=== PATIENT | female | born 1945 | race Caucasian/White ===

== ENCOUNTER 2017-06-14 15:40 | Inpatient (IN) | payer OTHER, MEDICARE ==
[~2017-06-14] VITALS: Ht 154.9 cm; Wt 47.5 kg
[~2017-06-14 15:40] MED LIST: AMLO5TAB22 PO; BYST10TA2 PO; LORA0.5T PO; LOVA40TA PO
[2017-06-14 16:03] VITALS: BP 155/74; PULSE 65; RESP 18; TEMP 98.5; O2SAT 94
--- NOTE | 2017-06-14 16:59 | RADRPT ---
EXAM DATE/TIME: 06/14/2017 16:31 [place] COMPARISON: No previous studies available for comparison. INDICATIONS : Cough. MEDICAL HISTORY : Hypertension. SURGICAL HISTORY : Cholecystectomy. ENCOUNTER: Initial ACUITY: 1 week PAIN SCORE: 0/10 LOCATION: Bilateral chest FINDINGS: PA and lateral views of the chest demonstrate the lungs to be symmetrically aerated without evidence of mass, infiltrate or effusion. The cardiomediastinal contours are unremarkable. Osseous structure s are intact. CONCLUSION: No evidence of acute cardiopulmonary disease. Randy Lloyd MD on June 14, 2017 at 16:56 Board Certified Radiologist. This report was verified electronically.
[2017-06-14 17:33] LABS: AUTOMATED NEUTROPHIL # 2.1 TH/MM3 (1.8-7.7); BASOPHIL % 0.6 % (0.0-2.0); EOSINOPHIL % 0.1 % (0.0-4.0); HEMATOCRIT 43.7 % (35.0-46.0); HEMOGLOBIN 15.1 GM/DL (11.6-15.3); LYMPH % 17.2 % (9.0-44.0); LYMPHOCYTE # 0.5 TH/MM3 (1.0-4.8); MEAN CELL VOLUME 82.7 FL (80.0-100.0); MEAN CORPUSCULAR HEMOGLOBIN 28.5 PG (27.0-34.0); MEAN CORPUSCULAR HGB CONC 34.4 % (32.0-36.0); MEAN PLATELET VOLUME 7.2 FL (7.0-11.0); MONO % 10.6 % (0.0-8.0); MONOCYTE # 0.3 TH/MM3 (0-0.9); NEUT % 71.5 % (16.0-70.0); PLATELET COUNT 253 TH/MM3 (150-450); RED BLOOD COUNT 5.29 MIL/MM3 (4.00-5.30); RED CELL DISTRIBUTION WIDTH 15.2 % (11.6-17.2); WHITE BLOOD COUNT 2.9 TH/MM3 (4.0-11.0)
[2017-06-14 17:36] LABS: BACTERIA, URINE RARE /hpf; BILIRUBIN, URINE NEG (NEG); BLOOD, URINE MOD (NEG); GLUCOSE,URINE NEG (NEG); KETONE, URINE TRACE mg/dL (NEG); NITRITE,URINE NEG (NEG); RENAL EPITHELIAL CELLS 1 /hpf; SQUAMOUS EPITHELIAL CELL URINE 2 /hpf (0-5); URINE COLOR YELLOW (YELLW/STRAW); URINE LEUKOCYTE ESTERASE LARGE (NEG)
--- NOTE | 2017-06-14 17:44 | PD ---
HPI Chief Complaint: GI Complaint Time Seen by Provider: 17:31 Travel History International Travel<30 days: No Contact w/Intl Traveler<30days: No Traveled to known affect area: No History of Present Illness HPI 71-year-old female smoker presents emergency department with one-week history of increasing weakness, dyspnea with exertion, and generalized malaise and decreased appetite. Patient reports diarrhea but no nausea, vomiting, or abdominal pain. She denies urinary symptoms other than decreased output. Patient denies chest pain but has increased wheezing and shortness of breath. Patient has history of COPD, and reports having an inhaler at home which he has not used and does not normally use. She continues to smoke half pack of cigarettes per day. Patient denies specific fever but has had some mild chills. She denies chest pain or lower extremity edema. Patient's complaints are very vague. Her chief complaint is generalized weakness and fatigue. Patient has allergies to amlodipine, codeine, losartan, hydrochlorothiazide, sertraline, and she states prednisone makes her "heart race". Patient reports history of renal insufficiency. PFSH Past Medical History Cancer: No Cardiovascular Problems: No Diabetes: No Endocrine: No Genitourinary: No Hepatitis: No Hiatal Hernia: No Hypertension: Yes Musculoskeletal: No Neurologic: No Psychiatric: No Reproductive: No Respiratory: No Thyroid Disease: No : 2 Para: 2 Past Surgical History Abdominal Surgery: Yes (GALL BLADDER REMOVED ) AICD: No Cardiac Surgery: No Cholecystectomy: Yes Ear Surgery: No Endocrine Surgery: No Eye Surgery: No Genitourinary Surgery: No Gynecologic Surgery: Yes (2X C-SECTIONS) Joint Replacement: No Oral Surgery: No Pacemaker: No Thoracic Surgery: No Social History Alcohol Use: No Tobacco Use: Yes (HALF A PACK DAILY) Substance Use: No Allergies-Medications (Allergen,Severity, Reaction): Coded Allergies: amlodipine (Unverified Adverse Reaction, Severe, 10/26/16) n/v codeine (Unverified Adverse Reaction, Severe, 10/26/16) tachycardia prednisone (Unverified Adverse Reaction, Severe, 10/26/16) tachycardia sertraline (Unverified Adverse Reaction, Severe, 10/26/16) dizzy, n/v Uncoded Allergies: losartan potassium-HCTZ (Adverse Reaction, Severe, 09/04/13) "heart racing" Reported Meds & Prescriptions Reported Meds & Active Scripts Active Reported Lovastatin 40 Mg Tab 50 Mg PO HS Lorazepam 0.5 Mg Tab 0.5 Mg PO DAILY Amlodipine Besylate 5 mg (Amlodipine Besylate) 5 Mg Tab 1 Tab PO DAILY Bystolic 10 Mg Tab (Nebivolol) 10 Mg Tab 10 Mg PO DAILY Review of Systems Except as stated in HPI: all other systems reviewed are Neg General / Constitutional: Positive: Chills, No: Fever Eyes: No: Visual changes HENT: Positive: Lightheadedness, No: Headaches, Vertigo, Sore Throat, Rhinitis , Rhinorrhea, Congestion, Nosebleed, Neck Stiffness, Neck Pain, Dental Difficulties, Earache Cardiovascular: Positive: Dyspnea on exertion, No: Chest Pain or Discomfort, Palpitations, Irregular Rhythm, Tachycardia, Diaphoresis, Syncope, Varicosities , Edema Respiratory: Positive: Cough, Shortness of Breath, Wheezing, No: Sneezing, Orthopnea, Hemoptysis, Night Sweats, Pleuritic Pain Gastrointestinal: Positive: Diarrhea, No: Nausea, Vomiting, Abdominal Pain Genitourinary: Positive: Decreased Urinary Output, No: Urgency, Frequency, Dysuria Musculoskeletal: No: Pain Skin: No Rash Neurologic: No: Weakness Psychiatric: No: Depression Endocrine: No: Polydipsia Hematologic/Lymphatic: No: Easy Bruising Physical Exam Narrative GENERAL: Patient appears weak, but able to answer questions. Has audible wheezing. SKIN: Warm and dry. Normal pallor. Decreased turgor with mild tenting. HEAD: Atraumatic. Normocephalic. EYES: Pupils equal and round. No scleral icterus. No injection or drainage. ENT: No nasal bleeding or discharge. Mucous membranes pink and moist. Pharynx is clear. Airways patent. TMs are clear. No sinus tenderness. NECK: Trachea midline. Supple and nontender. CARDIOVASCULAR: Regular rate and rhythm. No murmurs gallops or rubs RESPIRATORY: No accessory muscle use. Course with mild to moderate wheezing to auscultation. No rales or rhonchi. Breath sounds diminished bilaterally. GASTROINTESTINAL: Abdomen soft, non-tender, nondistended. Hepatic and splenic margins not palpable. No CVA tenderness. MUSCULOSKELETAL: Extremities without clubbing, cyanosis, or edema. No obvious deformities. Moving all extremities normally. NEUROLOGICAL: Awake and alert. No obvious cranial nerve deficits. Motor grossly within normal limits. Five out of 5 muscle strength in the arms and legs. Normal speech. PSYCHIATRIC: Appropriate mood and affect; insight and judgment normal. Data Data Last Documented VS Vital Signs Date Time Temp Pulse Resp B/P (MAP) Pulse Ox O2 Delivery O2 Flow Rate FiO2 06/14/17 18:26 99 Aerosol Mask 06/14/17 16:03 98.5 65 18 155/74 (101) Orders Orders Complete Blood Count With Diff (06/14/17 16:05) Comprehensive Metabolic Panel (06/14/17 16:05) Lipase (06/14/17 16:05) Urinalysis - C+S If Indicated (06/14/17 16:05) Chest, Pa & Lat (06/14/17 ) B-Type Natriuretic Peptide (06/14/17 17:42) Act Partial Throm Time (Ptt) (06/14/17 17:42) Prothrombin Time / Inr (Pt) (06/14/17 17:42) Magnesium (Mg) (06/14/17 17:42) Ckmb (Isoenzyme) Profile (06/14/17 17:42) Troponin I (06/14/17 17:42) Iv Access Insert/Monitor (06/14/17 17:42) Electrocardiogram (06/14/17 17:42) Ecg Monitoring (06/14/17 17:42) Oximetry (06/14/17 17:42) Oxygen Administration (06/14/17 17:42) Sodium Chloride 0.9% Flush (Ns Flush) (06/14/17 17:45) Albuterol-Ipratropium Neb (Duoneb Neb) (06/14/17 17:45) Dexamethasone Inj (Decadron Inj) (06/14/17 17:45) Sodium Chlorid 0.9% 500 Ml Inj (Ns 500 M (06/14/17 18:00) Labs Laboratory Tests Test 06/14/17 16:50 06/14/17 18:20 White Blood Count 2.9 TH/MM3 Red Blood Count 5.29 MIL/MM3 Hemoglobin 15.1 GM/DL Hematocrit 43.7 % Mean Corpuscular Volume 82.7 FL Mean Corpuscular Hemoglobin 28.5 PG Mean Corpuscular Hemoglobin Concent 34.4 % Red Cell Distribution Width 15.2 % Platelet Count 253 TH/MM3 Mean Platelet Volume 7.2 FL Neutrophils (%) (Auto) 71.5 % Lymphocytes (%) (Auto) 17.2 % Monocytes (%) (Auto) 10.6 % Eosinophils (%) (Auto) 0.1 % Basophils (%) (Auto) 0.6 % Neutrophils # (Auto) 2.1 TH/MM3 Lymphocytes # (Auto) 0.5 TH/MM3 Monocytes # (Auto) 0.3 TH/MM3 Eosinophils # (Auto) 0.0 TH/MM3 Basophils # (Auto) 0.0 TH/MM3 CBC Comment DIFF FINAL Differential Comment Urine Color YELLOW Urine Turbidity CLEAR Urine pH 6.0 Urine Specific [place] 1.016 Urine Protein 300 mg/dL Urine Glucose (UA) NEG mg/dL Urine Ketones TRACE mg/dL Urine Occult Blood MOD Urine Nitrite NEG Urine Bilirubin NEG Urine Urobilinogen LESS THAN 2.0 MG/DL Urine Leukocyte Esterase LARGE Urine RBC 1 /hpf Urine WBC 27 /hpf Urine Squamous Epithelial Cells 2 /hpf Urine Renal Epithelial Cells 1 /hpf Urine Bacteria RARE /hpf Microscopic Urinalysis Comment CULT NOT INDICATED Blood Urea Nitrogen 13 MG/DL Creatinine 1.10 MG/DL Random Glucose 89 MG/DL Total Protein 7.5 GM/DL Albumin 2.9 GM/DL Calcium Level 8.1 MG/DL Alkaline Phosphatase 107 U/L Aspartate Amino Transf (AST/SGOT) 53 U/L Alanine Aminotransferase (ALT/SGPT) 28 U/L Total Bilirubin 0.2 MG/DL Sodium Level 126 MEQ/L Potassium Level 4.0 MEQ/L Chloride Level 92 MEQ/L Carbon Dioxide Level 26.2 MEQ/L Anion Gap 8 MEQ/L Estimat Glomerular Filtration Rate 49 ML/MIN Lipase 252 U/L [facility] Medical Decision Making Medical Screen Exam Complete: Yes Emergency Medical Condition: Yes Medical Record Reviewed: Yes Differential Diagnosis Generalized weakness. Electrolyte imbalance. Dehydration. CHF. COPD with acute exacerbation. Diarrhea. Renal failure. Narrative Course Patient is medically stable at time of exam. Vital signs stable with O2 sat of 94% on room air. Labs ordered in triage include CBC, CMP, and urinalysis. Chest x-ray was ordered showing no acute process per radiologist. EKG is ordered after my exam. Additional labs ordered including cardiac panel, coagulation studies, proBNP, and magnesium. Patient is given DuoNeb 3 as well as 8 mg Decadron IV. Patient is given 500 mL of normal saline bolus. 1900 hrs., labs are pending. Care of the patient is turned over to Yanni Cunningham nurse practitioner for final disposition Condition: Stable Anand Ames Jun 14, 2017 17:44
[2017-06-14] MEDS ORDERED: SODIUM CHLORIDE 0.9% FLUSH 10 ML FLUSH IVF PRN (17:45)
[2017-06-14] MEDS ORDERED: DEXAMETHASONE SOD PHOS 4 MG/ML VIAL IV PUSH ONE (17:45)
[2017-06-14] MEDS: RESP: ALBUTEROL 2.5 MG/IPRATROPIUM 0.5 MG NEB (SCH) INH (17:51)
[2017-06-14 17:56] LABS: ALT (GPT) 28 U/L (10-53)
[2017-06-14 17:57] LABS: ALBUMIN 2.9 GM/DL (3.4-5.0); AST (GOT) 53 U/L (15-37); BICARBONATE 26.2 MEQ/L (21.0-32.0); BLOOD UREA NITROGEN 13 MG/DL (7-18); CALCIUM 8.1 MG/DL (8.5-10.1); CHLORIDE 92 MEQ/L (98-107); GLOMERULAR FILTRATION RATE 49 ML/MIN (>89); GLUCOSE,RANDOM 89 MG/DL (74-106); SODIUM (NA) 126 MEQ/L (136-145)
[2017-06-14 17:58] LABS: ALKALINE PHOSPHATASE 107 U/L (45-117); TOTAL BILIRUBIN ADULT 0.2 MG/DL (0.2-1.0); TOTAL PROTEIN 7.5 GM/DL (6.4-8.2)
[2017-06-14] MEDS ORDERED: SODIUM CHLORID 0.9% 500 ML INJ 500 ML IV ONE (18:00)
[2017-06-14 19:04] VITALS: BP 140/78; PULSE 114; RESP 20; TEMP 98.6; O2SAT 92
[2017-06-14 19:14] LABS: PROTHROMBIN TIME - PATIENT 9.9 SEC (9.8-11.6)
[2017-06-14 19:21] LABS: MAGNESIUM 1.7 MG/DL (1.5-2.5)
[2017-06-14 19:22] LABS: TROPONIN I LESS THAN 0.02 NG/ML (0.02-0.05)
[2017-06-14] MEDS ORDERED: SODIUM CHLOR 0.9% 1000 ML INJ 1,000 ML IV ONE (20:15)
[2017-06-14] MEDS ORDERED: cefTRIAXone INJ 1,000 MG in SODIUM CHLORIDE 0.9% INJ 100 ML IV ONE (20:15)
--- NOTE | 2017-06-14 20:24 | PD ---
Physical Exam Date Seen by Provider: Jun 14, 2017 Time Seen by Provider: 20:21 Narrative For full history and physical examination please see previous providers note. I assumed care of this patient change of shift. Data Data Last Documented VS Vital Signs Date Time Temp Pulse Resp B/P (MAP) Pulse Ox O2 Delivery O2 Flow Rate FiO2 06/14/17 19:04 98.6 114 20 140/78 (98) 92 Room Air Orders Orders Complete Blood Count With Diff (06/14/17 16:05) Comprehensive Metabolic Panel (06/14/17 16:05) Lipase (06/14/17 16:05) Urinalysis - C+S If Indicated (06/14/17 16:05) Chest, Pa & Lat (06/14/17 ) B-Type Natriuretic Peptide (06/14/17 17:42) Act Partial Throm Time (Ptt) (06/14/17 17:42) Prothrombin Time / Inr (Pt) (06/14/17 17:42) Magnesium (Mg) (06/14/17 17:42) Ckmb (Isoenzyme) Profile (06/14/17 17:42) Troponin I (06/14/17 17:42) Iv Access Insert/Monitor (06/14/17 17:42) Electrocardiogram (06/14/17 17:42) Ecg Monitoring (06/14/17 17:42) Oximetry (06/14/17 17:42) Oxygen Administration (06/14/17 17:42) Sodium Chloride 0.9% Flush (Ns Flush) (06/14/17 17:45) Albuterol-Ipratropium Neb (Duoneb Neb) (06/14/17 17:45) Dexamethasone Inj (Decadron Inj) (06/14/17 17:45) Sodium Chlorid 0.9% 500 Ml Inj (Ns 500 M (06/14/17 18:00) CKMB (06/14/17 18:20) CKMB% (06/14/17 18:20) Ceftriaxone Inj (Rocephin Inj) (06/14/17 20:15) Sodium Chlor 0.9% 1000 Ml Inj (Ns 1000 M (06/14/17 20:15) Admit Order (Ed Use Only) (06/14/17 20:19) Labs Laboratory Tests Test 06/14/17 16:50 06/14/17 18:20 White Blood Count 2.9 TH/MM3 Red Blood Count 5.29 MIL/MM3 Hemoglobin 15.1 GM/DL Hematocrit 43.7 % Mean Corpuscular Volume 82.7 FL Mean Corpuscular Hemoglobin 28.5 PG Mean Corpuscular Hemoglobin Concent 34.4 % Red Cell Distribution Width 15.2 % Platelet Count 253 TH/MM3 Mean Platelet Volume 7.2 FL Neutrophils (%) (Auto) 71.5 % Lymphocytes (%) (Auto) 17.2 % Monocytes (%) (Auto) 10.6 % Eosinophils (%) (Auto) 0.1 % Basophils (%) (Auto) 0.6 % Neutrophils # (Auto) 2.1 TH/MM3 Lymphocytes # (Auto) 0.5 TH/MM3 Monocytes # (Auto) 0.3 TH/MM3 Eosinophils # (Auto) 0.0 TH/MM3 Basophils # (Auto) 0.0 TH/MM3 CBC Comment DIFF FINAL Differential Comment Urine Color YELLOW Urine Turbidity CLEAR Urine pH 6.0 Urine Specific [place] 1.016 Urine Protein 300 mg/dL Urine Glucose (UA) NEG mg/dL Urine Ketones TRACE mg/dL Urine Occult Blood MOD Urine Nitrite NEG Urine Bilirubin NEG Urine Urobilinogen LESS THAN 2.0 MG/DL Urine Leukocyte Esterase LARGE Urine RBC 1 /hpf Urine WBC 27 /hpf Urine Squamous Epithelial Cells 2 /hpf Urine Renal Epithelial Cells 1 /hpf Urine Bacteria RARE /hpf Microscopic Urinalysis Comment CULT NOT INDICATED Blood Urea Nitrogen 13 MG/DL Creatinine 1.10 MG/DL Random Glucose 89 MG/DL Total Protein 7.5 GM/DL Albumin 2.9 GM/DL Calcium Level 8.1 MG/DL Alkaline Phosphatase 107 U/L Aspartate Amino Transf (AST/SGOT) 53 U/L Alanine Aminotransferase (ALT/SGPT) 28 U/L Total Bilirubin 0.2 MG/DL Sodium Level 126 MEQ/L Potassium Level 4.0 MEQ/L Chloride Level 92 MEQ/L Carbon Dioxide Level 26.2 MEQ/L Anion Gap 8 MEQ/L Estimat Glomerular Filtration Rate 49 ML/MIN Lipase 252 U/L Prothrombin Time 9.9 SEC Prothromb Time International Ratio 1.0 RATIO Activated Partial Thromboplast Time 34.3 SEC Magnesium Level 1.7 MG/DL Total Creatine Kinase 267 U/L Creatine Kinase MB 4.8 NG/ML Creatine Kinase MB % 1.8 % Troponin I LESS THAN 0.02 NG/ML [facility] Medical Record Reviewed: Yes Supervised Visit with BRIAN: No Narrative Course Per 's report patient has been weak and laying in bed for several days. For full H&P please see previous providers report. CBC with a white count of 2.9 with left shift, chemistry sodium of 126, creatinine 1.10 CK 267 CK-MB 4.8 lipase is normal, troponin is less than 0.02. Urinalysis with moderate occult blood, large leukocyte esterase, 27 white blood cells. This did not prompt reflux culture however patient will be treated with Rocephin IV now for urinary tract infection. Patient was given an additional liter of IV fluids. She was also placed on 2 L of oxygen via nasal cannula because her oxygen saturation was 91% on room air. Chest x-ray shows no acute disease. Discussed findings with Dr. Garcia who accepted admission. Patient has been advised on findings and plan of care and are agreeable. Diagnosis Primary Impression: Hyponatremia Additional Impressions: Urinary tract infection Qualified Codes: N39.0 - Urinary tract infection, site not specified; R31.9 - Hematuria, unspecified Generalized weakness COPD exacerbation Admitting Information Admitting Physician Requests: Admit Condition: Stable Yanni Berger [employer] Jun 14, 2017 20:24
[2017-06-14 21:13] VITALS: BP 147/69; PULSE 87; RESP 19; O2SAT 100
[2017-06-14] MEDS ORDERED: ACETAMINOPHEN 325 MG TAB PO PRN (23:15)
[2017-06-14] MEDS ORDERED: SODIUM CHLORIDE 0.9% FLUSH 10 ML FLUSH IV FLUSH PRN (23:15)
[2017-06-14] MEDS ORDERED: ONDANSETRON HCL 4 MG/2 ML VIAL IVP PRN (23:15)
[2017-06-14] MEDS ORDERED: NALOXONE HCL 0.4 MG/ML AMP IV PUSH PRN (23:15)
[2017-06-14 23:50] VITALS: BP 147/70; PULSE 89; RESP 16; TEMP 98.5; O2SAT 94
[2017-06-15] VITALS (13 sets, daily range): BP systolic 138–156; BP diastolic 67–76; PULSE 60–81; RESP 16–18; TEMP 98–98.7; O2SAT 93–98
[2017-06-15] MEDS: SODIUM CHLOR 0.9% 1000 ML INJ 1,000 ML IV SCH ×2 (00:50→20:49)
[2017-06-15] MEDS: HEPARIN SODIUM - SQ 10,000 UNITS/ML VIAL SQ SCH ×4 (00:51→23:58)
--- NOTE | 2017-06-15 04:31 | HHI.HP ---
[facility] Service [place] Hospitalists Primary Care Physician Alistair Yeung MD Admission Diagnosis UTI, GENERALIZED WEAKNESS, COPD EXACERBATION Diagnoses: Travel History International Travel<30 Days: No Contact w/Intl Traveler <30 Da: No Traveled to Known Affected Are: No History of Present Illness 71-year-old female with a past medical history significant for hypertension presents to the emergency department for evaluation of anorexia and weakness. The patient reports that she has been feeling sick for approximately one week. She endorses accompanying fever/chills. Positive diarrhea. Positive nonproductive cough. Patient denies any dysuria or frequency. No nausea/ vomiting/diarrhea. No chest pain or shortness of breath. No lateralizing signs /symptoms. Review of Systems Except as stated in HPI: all other systems reviewed are Neg Past Family Social History Past Medical History Hypertension Past Surgical History 2 Cholecystectomy Reported Medications Reported Meds & Active Scripts Active Reported Lovastatin 40 Mg Tab 50 Mg PO HS Lorazepam 0.5 Mg Tab 0.5 Mg PO DAILY Amlodipine Besylate 5 mg (Amlodipine Besylate) 5 Mg Tab 1 Tab PO DAILY Bystolic 10 Mg Tab (Nebivolol) 10 Mg Tab 10 Mg PO DAILY Allergies: Coded Allergies: amlodipine (Unverified Adverse Reaction, Severe, 10/26/16) n/v codeine (Unverified Adverse Reaction, Severe, 10/26/16) tachycardia prednisone (Unverified Adverse Reaction, Severe, 10/26/16) tachycardia sertraline (Unverified Adverse Reaction, Severe, 10/26/16) dizzy, n/v Uncoded Allergies: losartan potassium-HCTZ (Adverse Reaction, Severe, 09/04/13) "heart racing" Family History Mother with CAD Social History Smokes approximately half a pack per day. Denies alcohol or illicit drugs. Physical Exam Vital Signs Vital Signs Date Time Temp Pulse Resp B/P (MAP) Pulse Ox O2 Delivery O2 Flow Rate FiO2 06/14/17 23:50 98.5 89 16 147/70 (95) 94 06/14/17 21:13 87 19 147/69 (95) 100 Nasal Cannula 2.00 06/14/17 19:04 98.6 114 20 140/78 (98) 92 Room Air 06/14/17 18:26 99 Aerosol Mask 06/14/17 16:03 98.5 65 18 155/74 (101) 94 Physical Exam GENERAL: female lying in bed SKIN: No rashes, ecchymoses or lesions. Cool and dry. HEAD: Atraumatic. Normocephalic. No temporal or scalp tenderness. EYES: Pupils equal round and reactive. Extraocular motions intact. No scleral icterus. No injection or drainage. ENT: Nose without bleeding, purulent drainage or septal hematoma. Throat without erythema, tonsillar hypertrophy or exudate. Uvula midline. Airway patent. NECK: Trachea midline. No JVD or lymphadenopathy. Supple, nontender, no meningeal signs. CARDIOVASCULAR: Regular rate and rhythm without murmurs, gallops, or rubs. RESPIRATORY: Clear to auscultation. Breath sounds equal bilaterally. No wheezes , rales, or rhonchi. GASTROINTESTINAL: Abdomen soft, non-tender, nondistended. No hepato-splenomegaly , or palpable masses. No guarding. MUSCULOSKELETAL: Extremities without clubbing, cyanosis, or edema. No joint tenderness, effusion, or edema noted. No calf tenderness. NEUROLOGICAL: Awake and alert. Cranial nerves II through XII intact. Motor and sensory grossly within normal limits. Normal speech. Laboratory Laboratory Tests Test 06/14/17 16:50 06/14/17 18:20 White Blood Count 2.9 Red Blood Count 5.29 Hemoglobin 15.1 Hematocrit 43.7 Mean Corpuscular Volume 82.7 Mean Corpuscular Hemoglobin 28.5 Mean Corpuscular Hemoglobin Concent 34.4 Red Cell Distribution Width 15.2 Platelet Count 253 Mean Platelet Volume 7.2 Neutrophils (%) (Auto) 71.5 Lymphocytes (%) (Auto) 17.2 Monocytes (%) (Auto) 10.6 Eosinophils (%) (Auto) 0.1 Basophils (%) (Auto) 0.6 Neutrophils # (Auto) 2.1 Lymphocytes # (Auto) 0.5 Monocytes # (Auto) 0.3 Eosinophils # (Auto) 0.0 Basophils # (Auto) 0.0 CBC Comment DIFF FINAL Differential Comment Urine Color YELLOW Urine Turbidity CLEAR Urine pH 6.0 Urine Specific [place] 1.016 Urine Protein 300 Urine Glucose (UA) NEG Urine Ketones TRACE Urine Occult Blood MOD Urine Nitrite NEG Urine Bilirubin NEG Urine Urobilinogen LESS THAN 2.0 Urine Leukocyte Esterase LARGE Urine RBC 1 Urine WBC 27 Urine Squamous Epithelial Cells 2 Urine Renal Epithelial Cells 1 Urine Bacteria RARE Microscopic Urinalysis Comment CULT NOT INDICATED Blood Urea Nitrogen 13 Creatinine 1.10 Random Glucose 89 Total Protein 7.5 Albumin 2.9 Calcium Level 8.1 Alkaline Phosphatase 107 Aspartate Amino Transf (AST/SGOT) 53 Alanine Aminotransferase (ALT/SGPT) 28 Total Bilirubin 0.2 Sodium Level 126 Potassium Level 4.0 Chloride Level 92 Carbon Dioxide Level 26.2 Anion Gap 8 Estimat Glomerular Filtration Rate 49 Lipase 252 Prothrombin Time 9.9 Prothromb Time International Ratio 1.0 Activated Partial Thromboplast Time 34.3 Magnesium Level 1.7 Total Creatine Kinase 267 Creatine Kinase MB 4.8 Creatine Kinase MB % 1.8 Troponin I LESS THAN 0.02 B-Type Natriuretic Peptide 79 Date/Time Source Procedure Growth Status 06/14/17 16:05 Urine Clean Catch Urine Culture Pending Received Result Diagram: 06/14/17 1650 06/14/17 1650 Caprini VTE Risk Assessment Caprini VTE Risk Assessment: Mod/High Risk (score >= 2) Caprini Risk Assessment Model Point Value = 1 Point Value = 2 Point Value = 3 Point Value = 5 Age 41-60 Minor surgery BMI > 25 kg/m2 Swollen legs Varicose veins or History of unexplained or recurrent spontaneous Oral contraceptives or hormone replacement Sepsis (< 1 month) Serious lung disease, including pneumonia (< 1 month) Abnormal pulmonary function Acute myocardial infarction Congestive heart failure (< 1 month) History of inflammatory bowel disease Medical patient at bed rest Age 61-74 Arthroscopic surgery Major open surgery (> 45 min) Laparoscopic surgery (> 45 min) Malignancy Confined to bed (> 72 hours) Immobilizing plaster cast Central venous access Age >= 75 History of VTE Family history of VTE Factor V Leiden Prothrombin [id number] Lupus anticoagulant Anticardiolipin antibodies Elevated serum homocysteine Heparin-induced thrombocytopenia Other congenital or acquired thrombophilia Stroke (< 1 month) Elective arthroplasty Hip, pelvis, or leg fracture Acute spinal cord injury (< 1 month) Prophylaxis Regimen Total Risk Factor Score Risk Level Prophylaxis Regimen 0-1 Low Early ambulation 2 Moderate Order ONE of the following: *Sequential Compression Device (SCD) *Heparin 5000 units SQ BID 3-4 Higher Order ONE of the following medications: *Heparin 5000 units SQ TID *Enoxaparin/Lovenox 40 mg SQ daily (WT < 150 kg, CrCl > 30 mL/min) *Enoxaparin/Lovenox 30 mg SQ daily (WT < 150 kg, CrCl > 10-29 mL/min) *Enoxaparin/Lovenox 30 mg SQ BID (WT < 150 kg, CrCl > 30 mL/min) AND/OR *Sequential Compression Device (SCD) 5 or more Highest Order ONE of the following medications: *Heparin 5000 units SQ TID (Preferred with Epidurals) *Enoxaparin/Lovenox 40 mg SQ daily (WT < 150 kg, CrCl > 30 mL/min) *Enoxaparin/Lovenox 30 mg SQ daily (WT < 150 kg, CrCl > 10-29 mL/min) *Enoxaparin/Lovenox 30 mg SQ BID (WT < 150 kg, CrCl > 30 mL/min) AND *Sequential Compression Device (SCD) Assessment and Plan Assessment and Plan Assessment/plan: 1. Urinary tract infection UA consistent with UTI Urine culture pending Rocephin 2. Hyponatremia Sodium 126 May be contributing to patient's weakness Normal saline Fluid restriction 3. Hypertension/hyperlipidemia Continue home medications once reconciled FEN Heart healthy diet with fluid restriction NS at 60 cc/hour Heparin Physician Certification 2 Midnight Certification Type: Admission for Inpatient Services Order for Inpatient Services The services are ordered in accordance with Medicare regulations or non- Medicare payer requirements, as applicable. In the case of services not specified as inpatient-only, they are appropriately provided as inpatient services in accordance with the 2-midnight benchmark. Estimated LOS (days): 2 2 days is the estimated time the patient will need to remain in the hospital, assuming treatment plan goals are met and no additional complications. Post-Hospital Plan: Not yet determined Fany Garcia MD Jun 15, 2017 04:31
[2017-06-15 07:05] LABS: AUTOMATED NEUTROPHIL # 1.4 TH/MM3 (1.8-7.7); BASOPHIL % 0.5 % (0.0-2.0); EOSINOPHIL % 0.1 % (0.0-4.0); HEMATOCRIT 37.6 % (35.0-46.0); HEMOGLOBIN 12.9 GM/DL (11.6-15.3); LYMPH % 12.7 % (9.0-44.0); LYMPHOCYTE # 0.2 TH/MM3 (1.0-4.8); MEAN CELL VOLUME 82.8 FL (80.0-100.0); MEAN CORPUSCULAR HEMOGLOBIN 28.4 PG (27.0-34.0); MEAN CORPUSCULAR HGB CONC 34.3 % (32.0-36.0); MEAN PLATELET VOLUME 7.5 FL (7.0-11.0); MONO % 2.5 % (0.0-8.0); NEUT % 84.2 % (16.0-70.0); PLATELET COUNT 226 TH/MM3 (150-450); RED BLOOD COUNT 4.55 MIL/MM3 (4.00-5.30); RED CELL DISTRIBUTION WIDTH 14.9 % (11.6-17.2); WHITE BLOOD COUNT 1.7 TH/MM3 (4.0-11.0)
[2017-06-15 07:35] LABS: ALBUMIN 2.5 GM/DL (3.4-5.0); ALKALINE PHOSPHATASE 86 U/L (45-117); ALT (GPT) 22 U/L (10-53); AST (GOT) 38 U/L (15-37); BLOOD UREA NITROGEN 10 MG/DL (7-18); CALCIUM 7.7 MG/DL (8.5-10.1); CHLORIDE 100 MEQ/L (98-107); CREATININE 0.91 MG/DL (0.50-1.00); GLOMERULAR FILTRATION RATE 61 ML/MIN (>89); GLUCOSE,RANDOM 136 MG/DL (74-106); SODIUM (NA) 133 MEQ/L (136-145); TOTAL BILIRUBIN ADULT 0.1 MG/DL (0.2-1.0); TOTAL PROTEIN 6.4 GM/DL (6.4-8.2)
[2017-06-15] MEDS: SODIUM CHLORIDE 0.9% FLUSH 10 ML FLUSH IV FLUSH SCH ×2 (08:02→20:47)
--- NOTE | 2017-06-15 08:05 | EKG ---
Date Performed: 06/14/2017 Time Performed: 18:02:12 PTAGE: 71 years EKG: Sinus rhythm MINIMAL ST DEPRESSION BORDERLINE ECG NO PREVIOUS TRACING DOCTOR: Ochoa Arambula Interpretating Date/Time 06/15/2017 08:05:18
--- NOTE | 2017-06-15 08:47 | HHI.PR ---
Subjective Remarks Patient admitted Today, with diagnosis of UTI, Generalized weakness, COPD exacerbation. She is a Pleasant 71 y/o Female with Hypertension, Anorexia and weakness, Positive Diarrhea, non productive cough. seen in her bedroom, improving Hyponatremia,, continue with Diarrhea asked for C Diff, giving also management for COPD with bronchodilator, Mucolytic and incentive spirometry. does not want Nicotine replacement, denies any nausea and vomit. Objective Vital Signs Date Time Temp Pulse Resp B/P (MAP) Pulse Ox O2 Delivery O2 Flow Rate FiO2 06/15/17 07:26 98.0 78 16 138/67 (90) 98 06/15/17 06:32 Nasal Cannula 2.00 06/15/17 04:23 98.7 81 16 138/69 (92) 96 06/15/17 03:24 72 06/14/17 23:50 98.5 89 16 147/70 (95) 94 06/14/17 21:13 87 19 147/69 (95) 100 Nasal Cannula 2.00 06/14/17 19:04 98.6 114 20 140/78 (98) 92 Room Air 06/14/17 18:26 99 Aerosol Mask 06/14/17 16:03 98.5 65 18 155/74 (101) 94 I/O 06/14/17 06/14/17 06/14/17 06/15/17 06/15/17 06/15/17 07:00 15:00 23:00 07:00 15:00 23:00 Intake Total 1600 ml Balance 1600 ml Intake IV Total 1600 ml Result Diagram: 06/15/17 0553 06/15/17 0553 Imaging Last Impressions Chest X-Ray 06/14/17 0000 Signed Impressions: Service Date/Time: Wednesday, June 14, 2017 16:31 - CONCLUSION: No evidence of acute cardiopulmonary disease. Randy Lloyd MD Procedures None Other Results Laboratory Tests Test 06/14/17 16:50 06/14/17 18:20 06/15/17 05:53 Urine Color YELLOW Urine Turbidity CLEAR Urine pH 6.0 Urine Specific [place] 1.016 Urine Protein 300 mg/dL Urine Glucose (UA) NEG mg/dL Urine Ketones TRACE mg/dL Urine Occult Blood MOD Urine Nitrite NEG Urine Bilirubin NEG Urine Urobilinogen LESS THAN 2.0 MG/DL Urine Leukocyte Esterase LARGE Urine RBC 1 /hpf Urine WBC 27 /hpf Urine Squamous Epithelial Cells 2 /hpf Urine Renal Epithelial Cells 1 /hpf Urine Bacteria RARE /hpf Microscopic Urinalysis Comment CULT NOT INDICATED Lipase 252 U/L Prothrombin Time 9.9 SEC Prothromb Time International Ratio 1.0 RATIO Activated Partial Thromboplast Time 34.3 SEC Magnesium Level 1.7 MG/DL Total Creatine Kinase 267 U/L Creatine Kinase MB 4.8 NG/ML Creatine Kinase MB % 1.8 % Troponin I LESS THAN 0.02 NG/ML B-Type Natriuretic Peptide 79 PG/ML White Blood Count 1.7 TH/MM3 Red Blood Count 4.55 MIL/MM3 Hemoglobin 12.9 GM/DL Hematocrit 37.6 % Mean Corpuscular Volume 82.8 FL Mean Corpuscular Hemoglobin 28.4 PG Mean Corpuscular Hemoglobin Concent 34.3 % Red Cell Distribution Width 14.9 % Platelet Count 226 TH/MM3 Mean Platelet Volume 7.5 FL Neutrophils (%) (Auto) 84.2 % Lymphocytes (%) (Auto) 12.7 % Monocytes (%) (Auto) 2.5 % Eosinophils (%) (Auto) 0.1 % Basophils (%) (Auto) 0.5 % Neutrophils # (Auto) 1.4 TH/MM3 Lymphocytes # (Auto) 0.2 TH/MM3 Monocytes # (Auto) 0.0 TH/MM3 Eosinophils # (Auto) 0.0 TH/MM3 Basophils # (Auto) 0.0 TH/MM3 CBC Comment AUTO DIFF Blood Urea Nitrogen 10 MG/DL Creatinine 0.91 MG/DL Random Glucose 136 MG/DL Total Protein 6.4 GM/DL Albumin 2.5 GM/DL Calcium Level 7.7 MG/DL Alkaline Phosphatase 86 U/L Aspartate Amino Transf (AST/SGOT) 38 U/L Alanine Aminotransferase (ALT/SGPT) 22 U/L Total Bilirubin 0.1 MG/DL Sodium Level 133 MEQ/L Potassium Level 4.3 MEQ/L Chloride Level 100 MEQ/L Carbon Dioxide Level 24.0 MEQ/L Anion Gap 9 MEQ/L Estimat Glomerular Filtration Rate 61 ML/MIN Objective Remarks GENERAL: No acute distress SKIN: multiple lesions on her face. HEAD: Atraumatic. Normocephalic. EYES: Pupils equal round and reactive. ENT: Nose without bleeding, purulent drainage or septal hematoma. NECK: Trachea midline. No JVD or lymphadenopathy. Supple. CARDIOVASCULAR: Regular rate and rhythm RESPIRATORY: Clear to auscultation. GASTROINTESTINAL: Abdomen soft, non-tender, nondistended. Medications and IVs Current Medications Medications (Trade) Dose Ordered Sig/Tatyana Route Start Time Stop Time Status Last Admin Ceftriaxone Sodium 1000 mg/ Sodium Chloride 100 ml @ 200 mls/hr Q24H IV 06/15/17 21:00 (NS Flush) 2 ml UNSCH PRN IV FLUSH 06/14/17 23:15 (NS Flush) 2 ml BID IV FLUSH 06/15/17 09:00 (Tylenol) 650 mg Q4H PRN PO 06/14/17 23:15 (Zofran Inj) 4 mg Q6H PRN IVP 06/14/17 23:15 (Heparin Inj) 5,000 units Q8H SQ 06/14/17 23:15 06/15/17 07:56 (Narcan Inj) 0.4 mg UNSCH PRN IV PUSH 06/14/17 23:15 Sodium Chloride 1,000 ml @ 60 mls/hr [id number] IV 06/14/17 23:15 06/15/17 00:50 A/P Assessment and Plan 1. Urinary tract infection UA consistent with UTI Urine culture pending Rocephin 2. Hyponatremia improving to 133 continue low sodium level 3. Hypertension controlled continue home medicines. she has Allergy to Amlodipine will hold this medicine. 3. Hypertension/hyperlipidemia Continue home medications once reconciled 4. Acute Kidney Injury Improved. probable pre renal secondary to Diarrhea. 5. Tobacco dependence strongly recommended to stop smoking refuse nicotine replacement, bronchodilator, Mucolytic and incentive spirometry. 6. Diarrhea C Diff. Questran started. stool for ova and parasites, stool for culture. Heparin for DVT prophylaxis Bronchodilator, Mucolytic and Incentive spirometry follow electrolytes consult Dietitian. Consult PT and Expediter Service Order. Simon Veras MD Jun 15, 2017 08:46
[2017-06-15 08:50] LABS: BANDS 5 % (0-6); LYMPHOCYTES 3 % (9-44); MONOCYTES 3 % (0-8); NEUTROPHIL # MANUAL DIFF 1.6 TH/MM3 (1.8-7.7); POLYS (SEG NEUTROPHILS) 89 % (16-70)
[2017-06-15 08:53] LABS: ACANTHOCYTES 1+ (NORMAL); OVALOCYTES 1+ (NORMAL)
[2017-06-15] MEDS ORDERED: LOSA50TA PO (14:12)
[2017-06-15] MEDS: CHOLESTYRAMINE 4 GM PACKET PO SCH ×2 (15:29→22:00)
[2017-06-15] MEDS: RESP: ALBUTEROL 2.5 MG/IPRATROPIUM 0.5 MG NEB (SCH) NEB ×2 (16:43→20:00)
[2017-06-15] MEDS: NEBIVOLOL 10 MG TAB PO SCH (17:08)
[2017-06-15] MEDS: cefTRIAXone INJ 1,000 MG in SODIUM CHLORIDE 0.9% INJ 100 ML IV SCH (20:47)
[2017-06-15] MEDS: guaiFENesin E.R. 600 MG TAB PO SCH (20:47)
[2017-06-15] MEDS ORDERED: PRAVASTATIN SOD 40 MG TAB PO SCH (21:00)
[2017-06-16] VITALS (12 sets, daily range): BP systolic 130–173; BP diastolic 68–89; PULSE 53–66; RESP 16–20; TEMP 97.5–98.6; O2SAT 93–96
[2017-06-16] MEDS: RESP: ALBUTEROL 2.5 MG/IPRATROPIUM 0.5 MG NEB (SCH) NEB ×6 (04:00→19:25)
[2017-06-16] MEDS: SODIUM CHLOR 0.9% 1000 ML INJ 1,000 ML IV SCH ×2 (04:14→21:46)
[2017-06-16] MEDS: CHOLESTYRAMINE 4 GM PACKET PO SCH ×3 (05:34→20:39)
[2017-06-16] MEDS: HEPARIN SODIUM - SQ 10,000 UNITS/ML VIAL SQ SCH ×3 (06:28→22:20)
[2017-06-16 07:40] LABS: BICARBONATE 24.8 MEQ/L (21.0-32.0); CALCIUM 7.4 MG/DL (8.5-10.1); CREATININE 0.68 MG/DL (0.50-1.00); MAGNESIUM 1.6 MG/DL (1.5-2.5); PHOSPHORUS 1.6 MG/DL (2.5-4.9)
[2017-06-16 08:10] LABS: CALCIUM-PROTEIN CORRECTED 8.1 MG/DL (8.5-10.1); TOTAL PROTEIN 5.8 GM/DL (6.4-8.2)
[2017-06-16] MEDS: guaiFENesin E.R. 600 MG TAB PO SCH ×2 (08:50→20:38)
[2017-06-16] MEDS: NEBIVOLOL 10 MG TAB PO SCH (08:50)
[2017-06-16] MEDS: LORazepam 0.5 MG TAB PO SCH (08:51)
[2017-06-16] MEDS: SODIUM CHLORIDE 0.9% FLUSH 10 ML FLUSH IV FLUSH SCH ×2 (08:51→22:08)
[2017-06-16] MEDS ORDERED: NEBIVOLOL 10 MG TAB PO SCH (09:00)
[2017-06-16] MEDS ORDERED: amLODIPine BESYLATE 5 MG TAB PO SCH (09:00)
--- NOTE | 2017-06-16 17:37 | HHI.PR ---
Subjective Remarks Resting comfortably in bed No event overnight Denied chest and or short of breath No fever or chills Objective Vitals Vital Signs Date Time Temp Pulse Resp B/P (MAP) Pulse Ox O2 Delivery O2 Flow Rate FiO2 06/16/17 17:13 98.6 63 20 173/74 (107) 93 06/16/17 11:49 97.6 58 16 148/68 (94) 96 06/16/17 08:33 97.7 55 16 152/78 (102) 95 06/16/17 08:08 93 21 06/16/17 07:25 59 06/16/17 03:44 98.1 59 18 165/69 (101) 93 06/16/17 03:34 66 06/15/17 23:41 98.5 63 17 138/67 (90) 95 06/15/17 21:25 98.1 60 17 156/76 (102) 96 06/15/17 21:00 95 21 06/15/17 20:04 66 I/O 06/15/17 06/15/17 06/15/17 06/16/17 06/16/17 06/16/17 07:00 15:00 23:00 07:00 15:00 23:00 Intake Total 100 ml Balance 100 ml Intake IV Total 100 ml Result Diagram: 06/15/17 0553 06/16/17 0601 Objective Remarks GENERAL: This is a well-nourished, well-developed patient, in no apparent distress. SKIN: No rashes, warm and dry HEAD: Atraumatic. Normocephalic. EYES: Pupils equal round and reactive. Extraocular motions intact. No scleral icterus. ENT: Nose without bleeding, or drainage, Airway patent. NECK: Trachea midline. Supple CARDIOVASCULAR: Regular rate and rhythm without murmurs, gallops, or rubs. RESPIRATORY: Fair air entry bilaterally. No wheezes, rales, or rhonchi. GASTROINTESTINAL: Abdomen soft, non-tender, nondistended. Positive bowel sounds MUSCULOSKELETAL: Extremities without clubbing, cyanosis, or edema. Pedal pulses appreciated NEUROLOGICAL: Awake and alert. Moves all extremity. Normal speech.no focal neurological deficit A/P Assessment and Plan 1. Urinary tract infection UA consistent with UTI Urine culture pending Rocephin 2. Hyponatremia, hypomagnesemia and hypophosphatemia with hypokalemia: Potassium phosphate p.o., magnesium sulfate IV ordered, repeat BMP in a.m. 3. Hypertension controlled continue home medicines. she has Allergy to Amlodipine will hold this medicine. 3. Hypertension/hyperlipidemia I will resume losartan since kidney function improved since admission 4. Acute Kidney Injury Improved. probable pre renal secondary to Diarrhea. 5. Tobacco dependence strongly recommended to stop smoking refuse nicotine replacement, bronchodilator, Mucolytic and incentive spirometry. 6. Diarrhea C Diff. Questran started. stool for ova and parasites, stool for culture. Heparin for DVT prophylaxis Bronchodilator, Mucolytic and Incentive spirometry follow electrolytes consult Dietitian. Edouard Fu MD Jun 16, 2017 17:37
[2017-06-16] MEDS: LOSARTAN 50 MG TAB PO SCH (18:42)
[2017-06-16] MEDS: MAGNESIUM SULFATE 1 GM PREMIX 100 ML IV SCH ×2 (18:43→20:31)
[2017-06-16] MEDS: POTASSIUM PHOSPHATE MONOBASIC 500 MG TAB PO SCH (20:38)
[2017-06-16] MEDS: cefTRIAXone INJ 1,000 MG in SODIUM CHLORIDE 0.9% INJ 100 ML IV SCH (22:05)
[2017-06-17] VITALS (8 sets, daily range): BP systolic 157–173; BP diastolic 67–78; PULSE 55–61; RESP 17–20; TEMP 97.1–98.7; O2SAT 92–97
[2017-06-17] MEDS: RESP: ALBUTEROL 2.5 MG/IPRATROPIUM 0.5 MG NEB (SCH) NEB ×4 (04:00→12:00)
[2017-06-17] MEDS: CHOLESTYRAMINE 4 GM PACKET PO SCH ×2 (06:00→13:10)
[2017-06-17] MEDS: SODIUM CHLORIDE 0.9% FLUSH 10 ML FLUSH IV FLUSH SCH (07:33)
[2017-06-17] MEDS: LORazepam 0.5 MG TAB PO SCH (07:38)
[2017-06-17] MEDS: POTASSIUM PHOSPHATE MONOBASIC 500 MG TAB PO SCH (07:38)
[2017-06-17] MEDS: guaiFENesin E.R. 600 MG TAB PO SCH (07:38)
[2017-06-17] MEDS: LOSARTAN 50 MG TAB PO SCH (07:39)
[2017-06-17] MEDS: NEBIVOLOL 10 MG TAB PO SCH (07:39)
[2017-06-17] MEDS: HEPARIN SODIUM - SQ 10,000 UNITS/ML VIAL SQ SCH (07:40)
[2017-06-17 09:24] LABS: BICARBONATE 29.7 MEQ/L (21.0-32.0); CALCIUM 7.5 MG/DL (8.5-10.1); CREATININE 0.77 MG/DL (0.50-1.00); MAGNESIUM 2.1 MG/DL (1.5-2.5)
[2017-06-17 09:25] LABS: PHOSPHORUS 2.5 MG/DL (2.5-4.9)
--- NOTE | 2017-06-17 10:46 | PD.PN.STU ---
Subjective Remarks Follow up for UTI, COPD, neutropenia. Patient is resting comfortably in bed with no acute events over night. She does complain of an ongoing cough. Denies fever, chills, nausea, vomiting, chest pain, SOB. Objective Vitals Vital Signs Date Time Temp Pulse Resp B/P (MAP) Pulse Ox O2 Delivery O2 Flow Rate FiO2 06/17/17 07:52 97.1 58 20 157/67 (97) 97 06/17/17 07:35 60 06/17/17 07:33 92 06/17/17 05:16 55 06/17/17 04:52 98.7 57 17 160/74 (102) 93 06/17/17 01:00 57 06/17/17 00:08 97.4 58 17 173/78 (109) 93 06/16/17 22:00 55 06/16/17 20:35 97.5 61 17 130/89 (103) 93 06/16/17 19:25 96 06/16/17 17:13 98.6 63 20 173/74 (107) 93 06/16/17 16:15 53 06/16/17 12:45 59 06/16/17 11:49 97.6 58 16 148/68 (94) 96 I/O 06/16/17 06/16/17 06/16/17 06/17/17 06/17/17 06/17/17 07:00 15:00 23:00 07:00 15:00 23:00 Intake Total 240 ml Balance 240 ml Intake Oral 240 ml # Voids 2 Result Diagram: 06/15/17 0553 06/17/17 0644 Imaging Last Impressions Chest X-Ray 06/14/17 0000 Signed Impressions: Service Date/Time: Wednesday, June 14, 2017 16:31 - CONCLUSION: No evidence of acute cardiopulmonary disease. Randy Lloyd MD Objective Remarks GENERAL: Alert, oriented x3, NAD SKIN: Warm and dry. HEAD: Normocephalic. EYES: No scleral icterus. No injection or drainage. NECK: Supple, trachea midline. No JVD or lymphadenopathy. CARDIOVASCULAR: Regular rate and rhythm without murmurs, gallops, or rubs. RESPIRATORY: Breath sounds equal bilaterally. Decreased air flow. No accessory muscle use. GASTROINTESTINAL: Abdomen soft, non-tender, nondistended. MUSCULOSKELETAL: No cyanosis, or edema. BACK: Nontender without obvious deformity. No CVA tenderness. A/P Assessment and Plan Urinary tract infection UA consistent with UTI Urine culture mixed 10-50k CFU/ML of G+ senthil (probable contaminants) Hyponatremia, hypomagnesemia and hypophosphatemia with hypokalemia Repeat BMP on 06/17 revealed Na, Mg, phosphate, and K+ all WNL Hypertension Hyperlipidemia controlled continue home medicines, holding amlodipine due to reported allergy Acute Kidney Injury Improved. probable pre renal secondary to Diarrhea. Tobacco dependence strongly recommended to stop smoking Diarrhea C Diff. negative Stool for ova and parasites negative, stool for culture negative Heparin for DVT prophylaxis Bronchodilator, Mucolytic and Incentive spirometry Patient was seen and examined. Note above was reviewed and agree with the above note. Case was discussed at length with iWly Ritchie MS 3 Discharge Planning D/C today pending disposition Wily Ritchie M3 Jun 17, 2017 10:46 Hattie Matthews MD Jun 17, 2017 18:45
[2017-06-17] MEDS ORDERED: CALCIUM GLUCONATE INJ 1 GM in SODIUM CHLORIDE 0.9% INJ 100 ML IV ONE (13:00)
[2017-06-17] MEDS: SODIUM CHLOR 0.9% 1000 ML INJ 1,000 ML IV SCH (13:12)
--- NOTE | 2017-06-17 13:51 | HHI.DS ---
Discharge Summary Admission Date Jun 14, 2017 at 20:21 Discharge Date: Jun 17, 2017 Admitting Diagnosis UTI, GENERALIZED WEAKNESS, COPD EXACERBATION (1) Hypokalemia ICD Code: E87.6 - Hypokalemia Status: Acute (2) Hyponatremia ICD Code: E87.1 - Hyponatremia Status: Acute (3) Syncope ICD Code: R55 - Syncope Status: Acute (4) Severe uncontrolled hypertension ICD Code: I10 - Severe uncontrolled hypertension Status: Acute (5) Renovascular hypertension ICD Code: I15.0 - Renovascular hypertension Status: Acute Procedures No procedures Brief History - From Admission 71-year-old female with a past medical history significant for hypertension presents to the emergency department for evaluation of anorexia and weakness. The patient reports that she has been feeling sick for approximately one week. She endorses accompanying fever/chills. Positive diarrhea. Positive nonproductive cough. Patient denies any dysuria or frequency. No nausea/ vomiting/diarrhea. No chest pain or shortness of breath. No lateralizing signs /symptoms. CBC/BMP: 06/15/17 0553 06/17/17 0644 Significant Findings Laboratory Tests Test 06/14/17 16:50 06/14/17 18:20 06/15/17 05:53 06/15/17 17:00 White Blood Count 2.9 TH/MM3 (4.0-11.0) 1.7 TH/MM3 (4.0-11.0) Neutrophils (%) (Auto) 71.5 % (16.0-70.0) 84.2 % (16.0-70.0) Monocytes (%) (Auto) 10.6 % (0.0-8.0) Lymphocytes # (Auto) 0.5 TH/MM3 (1.0-4.8) 0.2 TH/MM3 (1.0-4.8) Urine Protein 300 mg/dL (NEG-TRACE) Urine Ketones TRACE mg/dL (NEG) Urine Occult Blood MOD (NEG) Urine Leukocyte Esterase LARGE (NEG) Urine WBC 27 /hpf (0-5) Urine Bacteria RARE /hpf (NONE) Creatinine 1.10 MG/DL (0.50-1.00) Albumin 2.9 GM/DL (3.4-5.0) 2.5 GM/DL (3.4-5.0) Calcium Level 8.1 MG/DL (8.5-10.1) 7.7 MG/DL (8.5-10.1) Aspartate Amino Transf (AST/SGOT) 53 U/L (15-37) 38 U/L (15-37) Sodium Level 126 MEQ/L (136-145) 133 MEQ/L (136-145) Chloride Level 92 MEQ/L (98-107) Estimat Glomerular Filtration Rate 49 ML/MIN (>89) 61 ML/MIN (>89) Activated Partial Thromboplast Time 34.3 SEC (24.3-30.1) Total Creatine Kinase 267 U/L (26-192) Creatine Kinase MB 4.8 NG/ML (0.5-3.6) Troponin I LESS THAN 0.02 NG/ML Neutrophils # (Auto) 1.4 TH/MM3 (1.8-7.7) Neutrophils % (Manual) 89 % (16-70) Lymphocytes % 3 % (9-44) Neutrophils # (Manual) 1.6 TH/MM3 (1.8-7.7) Ovalocytes 1+ (NORMAL) Acanthocytes 1+ (NORMAL) Random Glucose 136 MG/DL (74-106) Total Bilirubin 0.1 MG/DL (0.2-1.0) Test 06/16/17 06:01 06/17/17 06:44 Blood Urea Nitrogen 6 MG/DL (7-18) Random Glucose 73 MG/DL (74-106) 70 MG/DL (74-106) Total Protein 5.8 GM/DL (6.4-8.2) Calcium Level 7.4 MG/DL (8.5-10.1) 7.5 MG/DL (8.5-10.1) Phosphorus Level 1.6 MG/DL (2.5-4.9) Potassium Level 3.4 MEQ/L (3.5-5.1) Estimat Glomerular Filtration Rate 86 ML/MIN (>89) 74 ML/MIN (>89) Protein Corrected Calcium 8.1 MG/DL (8.5-10.1) Imaging Last Impressions Chest X-Ray 06/14/17 0000 Signed Impressions: Service Date/Time: Wednesday, June 14, 2017 16:31 - CONCLUSION: No evidence of acute cardiopulmonary disease. Randy Lloyd MD PE at Discharge GENERAL: This is a well-nourished, well-developed patient, in no apparent distress. SKIN: No rashes, warm and dry HEAD: Atraumatic. Normocephalic. EYES: Pupils equal round and reactive. Extraocular motions intact. No scleral icterus. ENT: Nose without bleeding, or drainage, Airway patent. NECK: Trachea midline. Supple CARDIOVASCULAR: Regular rate and rhythm without murmurs, gallops, or rubs. RESPIRATORY: Fair air entry bilaterally. No wheezes, rales, or rhonchi. GASTROINTESTINAL: Abdomen soft, non-tender, nondistended. Positive bowel sounds MUSCULOSKELETAL: Extremities without clubbing, cyanosis, or edema. Pedal pulses appreciated NEUROLOGICAL: Awake and alert. Moves all extremity. Normal speech.no focal neurological deficit Pt update on day of discharge Patient was ambulating in the room without any problems. No lightheadedness. No chest pain or shortness of breath. She is not coughing. No nausea or vomiting no diarrhea or constipation she is eating well. She is saturating well on room air. She does not have any fevers or chills. Does much better today. Wants to go home. Hospital Course Urinary tract infection. UA consistent with UTI on admission Urine culture reviewed and normal DC Rocephin Hyponatremia, hypomagnesemia and hypophosphatemia with hypokalemia: Potassium phosphate p.o., also received magnesium sulfate IV, repeat labs normal hypocalcemia. Ca replaced Hypertension controlled continue home medicines. she has Allergy to Amlodipine will hold this medicine. Hypertension/hyperlipidemia I will resume losartan since kidney function improved since admission Acute Kidney Injury Improved. probable pre renal secondary to Diarrhea. Tobacco dependence strongly recommended to stop smoking refuse nicotine replacement, bronchodilator, Mucolytic and incentive spirometry. Diarrhea C Diff. Questran started. stool for ova and parasites, stool for culture. The patient improved. She was discharged home in stable condition to follow-up with PCP and consultants as outpatient. Pt Condition on Discharge: Stable Discharge Disposition: Discharge Home Discharge Time: > 30 minutes Discharge Instructions DIET: Follow Instructions for: Heart Healthy Diet Activities you can perform: Regular-No Restrictions Follow up Referrals: PCP Follow-up - 2-3 Days Continued Medications: Amlodipine Besylate 5 mg (Amlodipine Besylate 5 mg) 5 Mg Tab 1 TAB PO DAILY, TAB Lorazepam (Lorazepam) 0.5 Mg Tab 0.5 MG PO DAILY, TAB Losartan (Losartan) 50 Mg Tab 50 MG PO DAILY for Blood Pressure Management, #30 TAB 0 Refills Nebivolol (Bystolic 10 Mg Tab) 10 Mg Tab 10 MG PO DAILY, TAB Hattie Matthews MD Jun 17, 2017 13:51
== END 2017-06-17 14:26 | disposition home or self-care (01) | DRG 191 ==
LOC: NEPD 15:40 → NEDA 20:21 → NEPGCP 23:32 → N05A 06-16 20:00
PROVIDERS: ADMIT Hospitalist; ATTEND Hospitalist
PROC: 3E0F7GC Introduction of Other Therapeutic Substance into Respiratory Tract, Via Natural or Artificial Opening (ICD-10-PCS; principal; 2017-06-14)
DX: J44.1 Chronic obstructive pulmonary disease with (acute) exacerbation (principal); E87.1 Hypo-osmolality and hyponatremia; N17.9 Acute kidney failure, unspecified; A04.72 Enterocolitis due to Clostridium difficile, not specified as recurrent; I15.0 Renovascular hypertension; E83.39 Other disorders of phosphorus metabolism; F17.210 Nicotine dependence, cigarettes, uncomplicated; N28.9 Disorder of kidney and ureter, unspecified; E87.6 Hypokalemia; E83.51 Hypocalcemia; E78.5 Hyperlipidemia, unspecified; Z82.49 Family history of ischemic heart disease and other diseases of the circulatory system; R63.0 Anorexia
CPT/HCPCS: 71046; 80048; 80053; 81001; 82550; 82552; 83690; 83735; 83880; 84100; 84155; 84484; 85007; 85025; 85027; 85610; 85730; 87015; 87086; 87116; 87206; 87328; 87329; 87493; 87506; 93005; 94150; 94640; 94664; 96361; 96374; J0610; J0696; J1100; J1644; J3475; J7030; J7040